=== PATIENT | female | born 1975 | race African-American/Black ===

== ENCOUNTER 2017-08-10 15:12 | Emergency (ER) | payer BC ==
[2017-08-10 15:45] VITALS: BP 179/91
--- NOTE | 2017-08-10 18:30 | UC ---
Deshawn Finney Alfonso, scribed for Anam Ceja MD on 08/10/17 at 1606 . General HPI - HPI Summary HPI Summary: This patient is a 41 year old F presenting to [facility] accompanied by with a chief complaint of left breast erythema noted at 1300 today. The patient rates the pain 0/10 in severity. Symptoms aggravated and alleviated by nothing. Patient reports a right rib lump. Patient denies left breast pain, left breast swelling, fever, chills, and discharge from nipple. She had a mammogram last month. LMP 07/24/17. - History of Current Complaint Chief Complaint: UCSkin Stated Complaint: REDNESS ON BREAST Time Seen by Provider: 08/10/17 15:43 Hx Obtained From: Patient Hx Last Menstrual Period: jul 24, 2017 Onset/Duration: Still Present, Other - noted hours ago Timing: Constant Pain Intensity: 0 - /10 Aggravating: nothing Alleviating: nothing Associated Signs & Symptoms: Positive: Other - right rib lump. Patient denies left breast pain, left breast swelling, fever, chills, and discharge from nipple. - Allergy/Home Medications Allergies/Adverse Reactions: Allergies Allergy/AdvReac Type Severity Reaction Status Date / Time No Known Drug Allergy Allergy Unknown Unknown Verified 08/10/17 15:44 Reaction Details PMH/Surg Hx/FS Hx/Imm Hx - Additional Past Medical History Additional PMH: 2 C-SECTIONS 2010, 2012 SPINAL Previously Healthy: No GI/ History: Other - 2 C-SECTIONS 2010 Other GI/ History: 2 C-SECTIONS 2010 Neurological History: Other - 2012 SPINAL Other Neurological History: 2012 SPINAL - Surgical History Surgical History: Yes Surgery Procedure, Year, and Place: 2 C-SECTIONS 2010, 2012 SPINAL - Family History Known Family History: Positive: Other - Negative HLD Negative: Hypertension, Diabetes - Social History Alcohol Use: None Substance Use Type: None Smoking Status (MU): Never Smoked Tobacco - Immunization History Most Recent Influenza Vaccination: unk Most Recent Tetanus Shot: 07/02 Most Recent Pneumonia Vaccination: unk Review of Systems Constitutional: Negative Skin: Other - left breast erythema Musculoskeletal: Other: - right rib lump.; negative left breast pain, left breast swelling, and discharge from nipple All Other Systems Reviewed And Are Negative: Yes Physical Exam Triage Information Reviewed: Yes Vital Signs: Initial Vital Signs Temp 98.6 F 08/10/17 15:37 Pulse 102 08/10/17 15:37 Resp 16 08/10/17 15:37 BP 179/91 08/10/17 15:37 Pulse Ox 100 08/10/17 15:37 Vital Signs Reviewed: Yes - Additional Comments VITAL SIGNS: Reviewed. GENERAL: Patient is a well-developed and nourished female who is lying comfortable in the stretcher. Patient is not in any acute respiratory distress. HEAD AND FACE: Normocephalic EYES: PERRLA, EOMI x 2. EARS: Hearing grossly intact. MOUTH: Oropharynx within normal limits. NECK: Supple, trachea is midline, no adenopathy, no JVD, no carotid bruit. CHEST: Symmetric, no tenderness at palpation LUNGS: Clear to auscultation bilaterally. No wheezing or crackles. CVS: Regular rate and rhythm, S1 and S2 present, no murmurs or gallops appreciated. ABDOMEN: Soft, non-tender. Bowel sounds are normal. No abdominal abnormal pulsations. Left breast ecchymosis 12 o clock. No masses. No deformity. No peau d'orange. Female RN Lay present. EXTREMITIES: Full ROM in all major joints, no edema, no cyanosis or clubbing. NEURO: Alert and oriented x 3. No acute neurological deficits. Speech is normal and follows commands. SKIN: Dry and warm. Small folliculitis at right rib cage. Course/Dx - Course Course Of Treatment: This patient is a 41 year old F presenting to [facility] accompanied by with a chief complaint of left breast erythema noted at 1300 today. The patient rates the pain 0/10 in severity. Symptoms aggravated and alleviated by nothing. Patient reports a right rib lump. Patient denies left breast pain, left breast swelling, fever, chills, and discharge from nipple. She had a mammogram last month. LMP 07/24/17. Patient will be discharged with follow up from PCP. The patient is agreeable with this plan. The patient is hemodynamically stable, alert and oriented x3. - Differential Dx - Multi-Symptom Provider Diagnoses: Left breast brusing. folliculitis. High blood pressure without a diagnosis of HTN. Discharge - Discharge Plan Condition: Stable Disposition: HOME Patient Education Materials: Folliculitis (ED), Ecchymosis (ED) Referrals: Laura Houston MD [Primary Care Provider] - 3 Days Additional Instructions: RETURN TO THE EMERGENCY DEPARTMENT OR CONVIENT CARE FOR CHANGING OR WORSENING SYMPTOMS. FOLLOW UP WITH YOUR PRIMARY CARE PROVIDER WITHIN ONE WEEK FOR HIGH BLOOD PRESSURE NOTED TODAY. The documentation as recorded by the Deshawn esposito Alfonso accurately reflects the service I personally performed and the decisions made by , Anam Ceja MD.
== END 2017-08-10 16:55 | disposition home or self-care (01) ==
LOC: UCEAST 15:12
DX: S20.02XA Contusion of left breast, initial encounter (principal); L73.9 Follicular disorder, unspecified; R03.0 Elevated blood-pressure reading, without diagnosis of hypertension; X58.XXXA Exposure to other specified factors, initial encounter; Y92.9 Unspecified place or not applicable
CPT/HCPCS: 99201; G0463

== ENCOUNTER 2017-11-18 15:02 | Emergency (ER) | payer SELFPAY ==
[2017-11-18 15:22] VITALS: BP 128/69
--- NOTE | 2017-11-18 15:55 | UC ---
FLU HPI - HPI Summary HPI Summary: c/o cough, general malaise, fever, nasal congestion for the past 4 days. She has been taking over the counter medications. She c/o some pain on LUQ with coughing but no other associated symptoms of n/v/d - History of Current Complaint Chief Complaint: UCRespiratory Stated Complaint: CONGESTION Time Seen by Provider: 11/18/17 15:40 Hx Obtained From: Patient Hx Last Menstrual Period: 11/11/17 Onset/Duration: Gradual Onset, Lasting Days Severity Currently: Moderate Severity Initially: Moderate Pain Intensity: 2 Associated Signs & Symptoms: Positive: Fever, Myalgia, Cough, Sore Throat, Nasal Congestion, Headache Related Hx: Possible Flu/Infectious Exposure - Risk Factors Influenza Risk Factors: Negative - Allergy/Home Medications Allergies/Adverse Reactions: Allergies Allergy/AdvReac Type Severity Reaction Status Date / Time No Known Allergies Allergy Verified 11/18/17 15:22 Home Medications: Home Medications NK [No Home Medications Reported] 11/18/17 [History Confirmed 11/18/17] PMH/Surg Hx/FS Hx/Imm Hx Previously Healthy: Yes - Surgical History Surgical History: Yes Surgery Procedure, Year, and Place: 2 C-SECTIONS 2010, 2012 SPINAL - Family History Known Family History: Positive: Other - Negative HLD Negative: Hypertension, Diabetes - Social History Alcohol Use: None Substance Use Type: None Smoking Status (MU): Never Smoked Tobacco - Immunization History Most Recent Influenza Vaccination: unk Most Recent Tetanus Shot: 07/02 Most Recent Pneumonia Vaccination: unk Review of Systems Constitutional: Fever ENT: Nasal Discharge Respiratory: Cough Musculoskeletal: Myalgia All Other Systems Reviewed And Are Negative: Yes Physical Exam Triage Information Reviewed: Yes Appearance: Well-Nourished Vital Signs: Initial Vital Signs Temp 100.9 F 11/18/17 15:20 Pulse 100 11/18/17 15:20 Resp 16 11/18/17 15:20 BP 128/69 11/18/17 15:20 Pulse Ox 100 11/18/17 15:20 Vital Signs Reviewed: Yes Eyes: Positive: Conjunctiva Inflamed ENT: Positive: Pharyngeal erythema, Nasal congestion, TMs normal, Uvula midline Neck: Positive: Supple, Nontender, No Lymphadenopathy Respiratory: Positive: Chest non-tender, Lungs clear, Normal breath sounds, No respiratory distress Cardiovascular: Positive: RRR, No Murmur, Pulses Normal Abdomen Description: Positive: Nontender, No Organomegaly, Soft Bowel Sounds: Positive: Present Flu Course/Dx - Course Course Of Treatment: Influenza test positive for influenza B. Rest, oral hydration, tylenol for pain or temperature above 101.5F when needed. - Differential Dx/Diagnosis Provider Diagnoses: Influenza B Discharge - Sign-Out/Discharge Documenting (check all that apply): Discharge - Discharge Plan Condition: Stable Disposition: HOME Patient Education Materials: Influenza (DC) Referrals: Laura Houston MD [Primary Care Provider] - - Billing Disposition and Condition Condition: STABLE Disposition: HOME
== END 2017-11-18 15:55 | disposition home or self-care (01) ==
LOC: UCEAST 15:02
DX: J10.1 Influenza due to other identified influenza virus with other respiratory manifestations (principal)
CPT/HCPCS: 87502; 99211; G0463

== ENCOUNTER 2018-08-03 15:06 | Emergency (ER) | payer BC, OTHER ==
[2018-08-03 15:21] VITALS: BP 117/71
--- NOTE | 2018-08-03 16:09 | UC ---
General HPI - HPI Summary HPI Summary: Pt reports 3 days progressive pain left upper back. Pt states pain worse with movement, deep breath, and ROM LUE. Pt denies SOB but staes feels pain worse with deep breath. Pt denies anterior chest pain. No paresthesia. No back, vision change. No recent illness Pt states was moveong boxes, but does not think relates. No paresthesia no ab pain no n/v no analgesia taken. No h/o similiar no OCP, no travel. no leg edema, pain no clotting d/o med reviewed this visit - History of Current Complaint Chief Complaint: UCChestPain Stated Complaint: CHEST,BACK PAIN Time Seen by Provider: 08/03/18 16:03 Hx Obtained From: Patient Hx Last Menstrual Period: 11/11/17 Onset/Duration: Gradual Onset Pain Intensity: 6 - Allergy/Home Medications Allergies/Adverse Reactions: Allergies Allergy/AdvReac Type Severity Reaction Status Date / Time No Known Allergies Allergy Verified 08/03/18 15:21 Home Medications: Home Medications Cholecalciferol (Vitamin D3) [Vitamin D3] 1,000 unit PO 08/03/18 [History] Cyanocobalamin TAB* [Vitamin B12 TAB*] 08/03/18 [History] Vitamin E 100 unit PO 08/03/18 [History] PMH/Surg Hx/FS Hx/Imm Hx Previously Healthy: Yes - Surgical History Surgical History: Yes Surgery Procedure, Year, and Place: 2 C-SECTIONS 2010, 2012 SPINAL - Family History Known Family History: Positive: Other - Negative HLD Negative: Hypertension, Diabetes - Social History Occupation: Employed Full-time - [place] Lives: With Family Alcohol Use: None Substance Use Type: None Smoking Status (MU): Never Smoked Tobacco - Immunization History Most Recent Influenza Vaccination: unk Most Recent Tetanus Shot: 07/02 Most Recent Pneumonia Vaccination: unk Review of Systems All Other Systems Reviewed And Are Negative: Yes Constitutional: Positive: Negative Skin: Positive: Negative Respiratory: Positive: Negative Cardiovascular: Positive: Negative Gastrointestinal: Positive: Negative Musculoskeletal: Positive: Other: - left upper back, shoulder Physical Exam - Summary Physical Exam Summary: Vital Signs Reviewed: Yes A+Ox3, no distress Eyes: Conjunctiva Clear, PINO. EOM intact and full ENT: Hearing grossly normal TM x 2 clear, mmoist, uvula midline, no exudate, no erythema Neck: Positive: Supple Pain increases left upper back wth lateral rotion to left and lateral abduction right - alexis in left uppoer posterior shoulder Respiratory: Positive: No respiratory distress, No accessory muscle use + CTA throughout no w/r no increased WOB Cardiovascular: RRR nl s1, s2 no m/r CBT <2 sec abd soft + BS nt/nd no guarding, no distension Musculoskeletal Exam: No spinous process pain c/t/l//s + full AROM with discomfort left upper back, + palpable spasm left trapezius and left paraspinal cervical area + abduct left shoulder with increase pain _ flex.ext elbow + pronate/supinate Neurological: Positive: Alert, + sensation throughout + thumb up, a k, finger cross, finger spread + gross sensation, bicep b/l no clonus Psychological: Positive: Normal Response To Family Skin: Positive: no rash, no ecchymosis Triage Information Reviewed: Yes Vital Signs: Initial Vital Signs Temp 98.4 F 08/03/18 15:16 Pulse 77 08/03/18 15:16 Resp 18 08/03/18 15:16 BP 117/71 08/03/18 15:16 Pulse Ox 98 08/03/18 15:16 Diagnostics - Radiology No standard instances Radiology Interpretation Completed By: Radiologist - Patient Name: ANAI MACHADO Medical Record#: [id number] Ordering Physician: Jordyn Cates MD Acct.#: [id number] : 1975 Age: 42 Sex: F Location: [facility] Exam Date: 08/03/18 162 ADM Status: REG ER Order Information: CHEST PA & LAT 2 VWS Accession Number: [id number] CPT: 23778 INDICATION: Left upper back pain. COMPARISON: Comparison is made with prior chest x-ray study from August 06, 2013. TECHNIQUE: Dual-energy PA and lateral views of the chest were obtained. FINDINGS: The heart is within normal limits in size. Mediastinal and hilar contours appear within normal limits. The lungs are clear. No pleural effusion or pneumothorax is seen. IMPRESSION: NO EVIDENCE FOR ACTIVE CARDIOPULMONARY DISEASE. < Electronically signed by Venkat Syed MD in OV> 08/03/181650 Dictated By: Venkat Syed MD Dictated Date/Time: 08/03/181650 Transcribed Date/Time: 1649 Copy to: CC:Laura Houston MD; Jordyn Cates MD Imaging - [facility] Imaging - [facility] Imaging - [facility] [id number] [place] [id number] ph ([phone] ph ) ph ([phone]) This report is only to be considered final once signed by the Provider(s) as displayed in the "<Electronically Signed by >" field (s). Absence of a signature indicates the report is in a draft status and still needs to be finalized. In the event this document was created by someone other than the signing Provider, the individual initiating the document will be listed in the "Entered by:" or "Dictated by:" andrew. 1 of 1 - EKG Cardiac Rate: NL Cardiac Rhythm: Sinus: Normal Ectopy: None Re-Evaluation - Re-Evaluation First Eval Comment: reviewed imaging study with pt. reassurance. heat. stretch. motrin/ apap. PT. ocp f.u. ED with any change or concerns Course/Dx - Course Course Of Treatment: Pt with left trapezius discomfort and palpable spasm. pt states worse with movement and palpation. Pt csm intact VSS. BS throughout. suspect muscle spasm - will give analgesia heat cxr. EKG non concerning - Diagnoses Provider Diagnosis: Muscle spasm Discharge - Sign-Out/Discharge Documenting (check all that apply): Patient Departure All imaging exams completed and their final reports reviewed: Yes - Discharge Plan Condition: Stable Disposition: HOME Prescriptions: Acetaminophen [Tylenol] 650 mg PO Q6HR PRN #30 capsule PRN Reason: Pain Ibuprofen TAB* [Motrin TAB* 600 MG] 600 mg PO Q6H PRN #30 tab PRN Reason: Pain Patient Education Materials: Muscle Spasm (ED), Back Pain (ED) Referrals: Laura Houston MD [Primary Care Provider] - (call for an appointment early next week) Additional Instructions: - Okay to alternate ibuprofen (Advil, Motrin) 600mg and Tylenol 1000mg every 3hours as needed for pain. Take with food. Do NOT take for more than 4-5 days. D -Apply moist heat to your back for 20 minutes at a time, 4-5 times a day. Once your muscles are warm, slow gentle stretching exercises are important -Contact your doctor today to arrange a follow-up appointment early next week. -If you pain is uncontrolled, you develop shortness of breath, sweating, fevers , or any other concerns - go to an emergency department for further treatment - Billing Disposition and Condition Condition: STABLE Disposition: Home
[2018-08-03] MEDS ORDERED: Ibuprofen TAB* 600 MG PO ONE (16:46)
== END 2018-08-03 17:15 | disposition home or self-care (01) ==
LOC: UCEAST 15:06
DX: M62.830 Muscle spasm of back (principal)
CPT/HCPCS: 71046; 93005; 99201; A9270-GY; G0463

== ENCOUNTER 2019-01-28 18:10 | Emergency (ER) | payer OTHER ==
--- OUTSIDE RECORDS SUMMARY | 2019-01-28 18:17 | XMS REPORT | Continuity of Care Document ---
:1975 External Reference #:[id number] Author Name Aby Carpenter M.D. Address [address] [facility] [place] [address] Care Team Providers Name Role Phone Aby Carpenter M.D. Care Team Information [employer] Unavailable Aby Carpenter M.D. Primary Care Physician Unavailable Payers Date Identification Numbers Payment Provider Subscriber Effective: Policy Number: [id number] [place] [employer] Nick Machado 2017 Group Number: [id number] [address] PayID: [id number] [place] [address] Problems Active Problems Provider Date Allergic rhinitis Aby Carpenter M.D. Onset: 01/22/2018 Family History Date Family Member(s) Observation Comments : (age 55 Years) Father due to Diabetes : (age 68 Years) Mother due to Septicemia Siblings 6 sisters Social History Type Date Description Comments Sex Unknown Marital Status . 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 Tablets History Medications No Active Medications Unknown 01/22/2018 - 01/22/2018 Vital Signs Date Vital Result Comment 01/24/2019 12:24pm BP Systolic 110 mmHg BP Diastolic 60 mmHg Heart Rate 72 /min Body Temperature 99.3 F Respiratory Rate 16 /min Height 60.5 inches 5'0.50" Weight 158.00 lb BMI (Body Mass Index) 30.3 kg/m2 01/22/2018 6:39pm BP Systolic 124 mmHg BP Diastolic 80 mmHg Heart Rate 66 /min Body Temperature 98.6 F Respiratory Rate 16 /min Height 60.5 inches 5'0.50" Weight 128.25 lb BMI (Body Mass Index) 24.6 kg/m2 Results Test Date Facility Test Result H/L Range Note Laboratory test 02/26/2018 [facility] SEE RESULT 1 finding BELOW Comprehensive 01/12/2018 Kevin Lety(fma) Sodium 135 mEq/L 134-149 Metabolic Prof Potassium 4.1 mEq/L 3.6-5.5 Chloride 97 mEq/L 94-112 Carbon Dioxide 24 mEq/L 21-32 Glucose 100 mg/dL 70-105 BUN 7 mg/dL 6-26 Creatinine 0.8 mg/dL 0.6-1.4 BUN/Creat Ratio 8.8 CALC 8.0-36.0 Calcium 9.3 mg/dL 8.6-10.2 Total Protein 7.8 g/dL 6.4-8.3 Albumin 4.7 g/dL 3.8-5.5 Globulin 3.1 g/dL 2.0-4.8 A/G Ratio 1.5 CALC 0.6-2.3 Alk. Phosphatase 45 U/L 30-110 Alt (SGPT) 10 U/L 7-35 Ast (Sgot) 18 U/L 5-34 Total Bilirubin 0.3 mg/dL 0.2-1.3 GFR Non- >60 ml/min/1.73m^ >=60 GFR >60 ml/min/1.73m^ >=60 Lipid Profile 01/12/2018 Kevin Lety(fma) Cholesterol 182 mg/dL 120- 200 Triglycerides 63 mg/dL 30-200 HDL Cholesterol 52 mg/dL 30-85 LDL (Calculated) 117 CALC 0-129 VLDL Cholesterol 13 mg/dL 0-50 HDL Risk Factor 3.5 CALC 0.0-4.4 CBC Electronic Fma 01/12/2018 Kevin Lety(fma) WBC 6.6 x10^3/UL 4.0- 10.0 RBC 4.25 x10^6/UL 3.93-6.00 HGB 12.7 g/dL 12.0-17.0 HCT 38 % 35-50 MCV 88.9 fL 80.0-95.0 MCH 29.9 pg 25.6-32.2 MCHC 33.6 g/dL 32.2-36.0 RDW-CV 12.3 % 11.6-14.4 PLT 239 x10^3/UL 163-400 MPV 10.7 fL 9.4-12.4 Pasha# 3.23 x10^3/UL 1.56-6.13 Lymph# 2.61 x10^3/UL 1.18-3.74 Mckean# 0.35 x10^3/UL 0.24-0.82 Eos # 0.4 x10^3/UL 0.0-0.5 Baso # 0.03 x10^3/UL 0.01-0.08 Pasha% 49.0 % 34.0-70.0 Lymph % 39.6 % 20.0-52.0 Mckean% 5.3 % 5.0-12.0 Eos% 5.6 % 0.7-7.0 Baso% 0.5 % 0.1-1.2 Laboratory test finding 01/12/2018 Kevin Davidson(fma) TSH 0.81 mIU/L 0.50-6.00 1 SEE RESULT BELOW Name: NICK MACHADO : [address]: Elma Morrow MD Acct: [id number] Unit: [id number] AGE: 42 Location: [facility] Re02/26/18 SEX: F Status: REG REF SPEC: [id number] ELVIN: 02/26/18-[address] [facility] DR: Elma Morrow MD REQ: [id number] RECD: 02/26/18 STATUS: KEVEN FRANCOIS DR: Aby Carpenter MD _ ORDERED: TP IMAGE ANALYS, HPV/Thin Prep COMMENTS: [id number] Negative for Intraepithelial lesion or Malignancy A. Ectocervical/Endocervical Specimen Adequacy: Satisfactory of evaluation Transformation zone component identified Patient Information: HPV: High risk HPV RNA testing regardless of pap results. Actual Specimen Date: 02/26/18 Last Menstrual Date: 02/03/18 Date of Last Specimen: 01/23/17 Date Time Test Result Flag (u) Normal Range 02/26/18 0905 @ HPV RNA Negative Negative @ @ The high-risk HPV types detected by the assay include: 16, @ 18, 31, 33, 35, 39, 45, 51, 52, 56, 58, 59, 66, and 68. Signed by and Reported on: FELIPE Yancey(ASCP) [id number] This Pap test was evaluated with the assistance of the BizXchangePrep Test Imaging System. Due to cytologic findings at the director of donor relations microscope, comprehensive manual rescreening by a Underwear Welter may be required. The Pap Smear is a screening test designed to aid in the detection of premalignant and malignant conditions of the uterine cervix. It is not a diagnostic procedure and should not be used as the sole means of detecting cervical cancer. Both false- positive and false- negative reports do occur. Depending on your risk status, a Pap smear should be obtained and evaluated every 1-3 years. END OF REPORT DEPARTMENT OF PATHOLOGY, [address] [place] [address] Paddy England M.D. Director [facility] # [id number] Procedures Date Code Description Status 05/21/2017 [id number] Mammogram Completed Encounters Type Date Location Provider Dx Diagnosis Office Visit 01/22/2018 Main Office Aby Carpenter M.D. Z00.00 Encntr for general 6:30p adult medical exam w/o abnormal findings J30.9 Allergic rhinitis, unspecified R07.0 Pain in throat Plan of Treatment Future Appointment(s):02/25/2019 9:00 am - Aby Carpenter M.D. at [facility] [id number]/06/2019 8:40 am - Aby [facility] M.D. at [facility] [place]01/24/2019 - Aby Carpenter M.D.J30.9 Allergic rhinitis, unspecifiedComments:try claritin or zyrtec at night for the weekR51 HeadacheComments:keep diary of when headaches occur, how long they last, what relieved symptoms, how severe the pain was, associated symptoms, possible triggers including sleep, food, allergens, and stress can try excedrin migraine pool may be triggering migraineAllComments: Medication Management Patient Understands medications she's taking? Yes No Are there Barriers to Adherence? Yes No Has the patient been asked about herbal supplements and therapies, and OTC meds? Yes No
[2019-01-28 18:40] VITALS: BP 146/88
[2019-01-28] MEDS ORDERED: diPHENhydraMINE IV* 50 MG/ML 1 ml VIAL (BENADRYL) IV ONE (18:44)
[2019-01-28] MEDS ORDERED: Ketorolac INJ* 30 MG/ML 1 ML VIAL IV PUSH ONE (18:44)
[2019-01-28] MEDS ORDERED: Metoclopramide IV* 5 MG/ML 2 ML VIAL IV ONE (18:44)
[2019-01-28] MEDS ORDERED: NS 0.9% 1000 ML** 1,000 ML IV ONE (18:45)
--- NOTE | 2019-01-28 18:49 | UC ---
Headache HPI - HPI Summary HPI Summary: 43-year-old female presents with 1 week worth of right frontal headache that came on gradually last Monday. She states she has been using a pool and was concerned that perhaps the bromine was causing her headaches. She has also had coughing, sneezing and sinus pressure mostly in her right maxillary sinus. Going under water in the pool makes her head pressure worse. She denies any fever, neck pain but does have some photophobia. She has no numbness or weakness and no visual changes. - History Of Current Complaint Chief Complaint: UCHeadache Stated Complaint: HEADACHE Time Seen by Provider: 01/28/19 18:34 Hx Obtained From: Patient Hx Last Menstrual Period: last week Pain Intensity: 9 - Allergies/Home Medications Allergies/Adverse Reactions: Allergies Allergy/AdvReac Type Severity Reaction Status Date / Time No Known Allergies Allergy Verified 01/28/19 18:30 Home Medications: Home Medications Aspirin/Acetaminophen/Caffeine [Excedrin Migraine Caplet] 1 each PO 01/28/19 [ History] PMH/Surg Hx/FS Hx/Imm Hx Previously Healthy: Yes - Surgical History Surgical History: Yes Surgery Procedure, Year, and Place: 2 C-SECTIONS 2010, 2012 - Family History Known Family History: Positive: Other - Negative HLD Negative: Hypertension, Diabetes - Social History Occupation: Employed Full-time Alcohol Use: None Substance Use Type: None Smoking Status (MU): Never Smoked Tobacco - Immunization History Most Recent Influenza Vaccination: unk Most Recent Tetanus Shot: 07/02 Most Recent Pneumonia Vaccination: unk Review of Systems All Other Systems Reviewed And Are Negative: Yes Constitutional: Negative: Fever Skin: Negative: Rash Eyes: Positive: Photophobia. Negative: Blurred Vision, Drainage ENT: Positive: Nasal Discharge, Sinus Congestion, Sinus Pain/Tenderness. Negative: Sore Throat Respiratory: Positive: Negative Cardiovascular: Positive: Negative Gastrointestinal: Negative: Vomiting, Nausea Neurological: Positive: Headache. Negative: Weakness, Paresthesia, Numbness Physical Exam Triage Information Reviewed: Yes Appearance: Pain Distress - mild Vital Signs: Initial Vital Signs Temp 98 F 01/28/19 18:24 Pulse 85 01/28/19 18:24 Resp 16 01/28/19 18:24 BP 152/105 01/28/19 18:24 Pulse Ox 100 01/28/19 18:24 Vital Signs Reviewed: Yes Eyes: Positive: Conjunctiva Clear, Other: - globes soft, temporal arteries non- tender. Negative: Conjunctiva Inflamed ENT: Positive: Hearing grossly normal, Pharynx normal, TMs normal, Sinus tenderness - R maxillary and frontal. Negative: Nasal congestion, Nasal drainage Neck: Positive: Supple, No Lymphadenopathy. Negative: Nuchal Rigidity Respiratory: Positive: Lungs clear Cardiovascular: Positive: RRR Musculoskeletal Exam: Normal Neurological Exam: Normal Psychological Exam: Normal Psychological: Positive: Decreased Age Appropriate Behavior Diagnostics - Radiology CT brain Radiology Interpretation Completed By: Radiologist - IMPRESSION: Normal noncontrast head CT. Headache Course/Dx - Course Course Of Treatment: CT head negative. No evidence for sinus disease. Headache treated with complete relief. Follow-up primary care physician. Single-sided, lobar headache consistent with migraine. - Differential Dx/Diagnosis Differential Diagnosis/HQI/PQRI: Subdural Hematoma, Meningitis, Migraine, Sinus Headache, Tension Headache, Viral Syndrome Provider Diagnosis: Migraine headache Discharge - Sign-Out/Discharge Documenting (check all that apply): Patient Departure All imaging exams completed and their final reports reviewed: Yes - Discharge Plan Condition: Improved Disposition: HOME Prescriptions: Promethazine TAB* [Phenergan Tab*] 25 mg PO Q8H PRN #30 tab PRN Reason: headache/nausea Patient Education Materials: Migraine Headache (ED) Referrals: Aby Carpenter MD [Primary Care Provider] - Additional Instructions: Drink plenty of fluids. Ibuprofen, Benadryl can be added to the prescribed medication if headache is more severe. He may help. Stay well-hydrated. Return with fever, unremitting headache, vomiting, worse, new symptoms or other concerns. Call in the morning to schedule prompt follow-up with your doctor. - Billing Disposition and Condition Condition: IMPROVED Disposition: Home
== END 2019-01-28 20:19 | disposition home or self-care (01) ==
LOC: UCEAST 18:10
DX: G43.909 Migraine, unspecified, not intractable, without status migrainosus (principal)
CPT/HCPCS: 70450; 96360; 96374; 96375; 99212; G0463; J1200; J1885; J2765